=== PATIENT | male | born 1985 | race Caucasian/White ===

== ENCOUNTER 2022-02-24 21:10 | Emergency (ER) | payer OTHER, SELFPAY ==
[2022-02-24 21:12] VITALS: BP 171/116; PULSE 106; RESP 22; TEMP 36.6; O2SAT 99; BMI 28.7
--- NOTE | 2022-02-24 21:24 | HMH.EDGENADL ---
Discharge Plan Disposition Patient Disposition: [facility] Chief Complaint: Chest Pain Prescriptions Prescriptions: No Action No Known Home Medications Referrals Follow up/Referrals: Provider,Referral, [Primary Care Provider] - See instructions Clinical Impressions Clinical Impression: Acute alcoholic pancreatitis Discharge ED Provider: Risa Stewart General Adult HPI General Chief complaint: Chest Pain Stated complaint: chest pain Time Seen by Provider: 02/24/22 21:24 Mode of Arrival: Ambulatory Source of Information: Patient Limitations: Severe pain History of Present Illness HPI narrative: 36yo M w/pmhx of EtoH abuse w/cc of severe epigastric abdominal pain a/w nausea, vomiting, diarrhea. Patient provides limited h/o due to pain. Has attempted to drink Etoh to relieve sx without succes. Afebrile at home. Onset (ago): day(s) Radiation: abdomen Quality: stabbing and sharp Consistency: constant Relieving factors: none Exacerbating factors: none Associated symptoms: nausea/vomiting Treatments prior to arrival: none Related Data Home Medications Medication Instructions Recorded Confirmed No Known Home Medications 02/25/22 02/25/22 Allergies Allergy/AdvReac Type Severity Reaction Status Date / Time No Known Allergies Allergy Verified 02/24/22 21:32 [facility] Social History (Updated 02/25/22 @ 00:14 by Jessie Blair RN) Smoking Status: Current some day smoker alcohol intake: current counseling given: Yes counseling provided: provider counseling substance use type: other counseling given: Yes counseling provided: provider counseling current occupational status: employed Travel in the last 8 weeks: None ROS Obtained: Yes Systems reviewed as appropriate & no additional complaints except as documented Constitutional Constitutional: Denies body ache, Denies chills, Denies fatigue, Denies fever(s) and Denies headache(s) Eyes Eyes: Denies change in vision and Denies eye pain ENT Ears, Nose, Mouth, and Throat: Denies headache(s), Denies nasal congestion, Denies nasal discharge, Denies neck pain and Denies sore throat Cardiovascular Cardiovascular: Denies chest pain at rest, Denies chest pain with activity, Denies dyspnea on exertion, Denies leg edema and Denies palpitations Respiratory Respiratory: Denies shortness of breath, Denies cough, Denies dyspnea on exertion and Denies hemoptysis Gastrointestinal Gastrointestingal: Reports abdominal pain, diarrhea, nausea and vomiting; Denies hematemesis Genitourinary Male Genitourinary: Denies difficulty urinating, Denies hematuria, Denies oliguria and Denies urinary frequency Musculoskeletal Musculoskeletal: Denies back pain and Denies neck pain Integumentary/Breasts Skin/Breast: Denies new lesions and Denies rash Neurologic Neurologic: Denies confusion, Denies focal weakness, Denies headache(s) and Denies paresthesias Endocrine Endocrine: Denies fatigue and Denies palpitations Physical Exam General General appearance: alert Comment: Appears to be in moderate to severe pain Head Head exam: atraumatic, normocephalic and normal inspection Eye Eye exam: Present normal appearance; Absent conjunctival redness or conjunctival injection ENT ENT exam: Present normal exam, normal oropharynx, mucous membranes moist and normal external ear exam Neck Neck exam: Present normal inspection, full ROM and trachea midline Chest Chest inspection: Present normal inspection and symmetric chest wall rise Respiratory Respiratory exam: Present normal lung sounds bilaterally; Absent respiratory distress, wheezes or stridor Cardiovascular Cardiovascular exam: Present regular rate, normal rhythm, tachycardia and normal heart sounds Abdominal Exam Abdominal exam: Present soft, tenderness and guarding; Absent distention or rigidity Extremities Exam Extremities exam: Present normal inspection, full ROM and other (No acu
--- NOTE | 2022-02-24 21:36 | ECG_ITS ---
APPROVED REPORT Exam: Resting ECG HR:105 bpm ECG Measurements Heart Rate 105 AXES OK 140 P 69 QRSd 94 QRS 39 QT 347 T 53 QTc 408 Conclusion SINUS TACHYCARDIA ABNORMAL RHYTHM ECG UNCONFIRMED REPORT Electronically signed by : Dustin Cid MD 02/26/2022 18:01:39
--- NOTE | 2022-02-24 21:36 | XR_ITS ---
PROCEDURE INFORMATION: Exam: XR Chest Exam date and time: 02/24/2022 10:25 PM Age: 36 years old Clinical indication: Sternal or substernal pain; Additional info: Chest pain TECHNIQUE: Imaging protocol: Radiologic exam of the chest. Views: 1 view. COMPARISON: CT ABDOMEN PELVIS W CON 02/24/2022 10:03 PM FINDINGS: Lungs: Unremarkable. No consolidation. Pleural spaces: Unremarkable. No pleural effusion. No pneumothorax. Heart/Mediastinum: Unremarkable. No cardiomegaly. Bones/joints: Unremarkable. IMPRESSION: No acute findings.
--- NOTE | 2022-02-24 21:49 | CT_ITS ---
PROCEDURE INFORMATION: Exam: CT Abdomen And Pelvis With Contrast Exam date and time: 02/24/2022 10:03 PM Age: 36 years old Clinical indication: Abdominal pain; Generalized; Additional info: Abdominal pain, diffuse TECHNIQUE: Imaging protocol: Computed tomography of the abdomen and pelvis with contrast. Radiation optimization: All CT scans at this facility use at least one of these dose optimization techniques: automated exposure control; mA and/or kV adjustment per patient size (includes targeted exams where dose is matched to clinical indication); or iterative reconstruction. Contrast material: ISOVUE; Contrast volume: 75 ml; Contrast route: IV; COMPARISON: No relevant prior studies available. FINDINGS: Liver: There is a diffuse decrease in hepatic parenchymal density consistent with fatty infiltration. Gallbladder and bile ducts: Normal. No calcified stones. No ductal dilation. Pancreas: Ill-defined pancreatic borders. Relative slight decreased enhancement of the pancreatic tail. Considerable inflammatory changes surround the pancreas. Spleen: Normal. No splenomegaly. Adrenal glands: Normal. No mass. Kidneys and ureters: Normal. No hydronephrosis. Stomach and bowel: Unremarkable. No obstruction. No mucosal thickening. Appendix: Appendectomy. Intraperitoneal space: Free fluid within the abdomen and pelvis. Vasculature: Unremarkable. No abdominal aortic aneurysm. Lymph nodes: Unremarkable. No enlarged lymph nodes. Urinary bladder: Unremarkable as visualized. Reproductive: Unremarkable as visualized. Bones/joints: Unremarkable. No acute fracture. Soft tissues: Unremarkable. IMPRESSION: 1. Acute pancreatitis with considerable peripancreatic inflammatory change and pancreatic tail region edema. 2. Abdominal and pelvic free fluid. 3. Fatty liver.
[2022-02-24 21:57] LABS: Anion Gap 22.1 mEq/L (5-15); Blood Urea Nitrogen 20 mg/dl (9-20); Calcium 8.2 mg/dl (8.4-10.2); Carbon Dioxide 21 mmol/L (22.0-30.0); Chloride 100 mmol/L (98-107); Creatinine Clearance Estimated 148 mL/min (50-200); Estimated Glomerular Filt Rate 97 ml/min (>60); GFR (African American) 117 ML/MIN (>60); Glucose 115 mg/dl (74-100); Potassium 4.1 mmoL/L (3.5-5.1); Sodium 139 mmol/L (136-145)
[2022-02-24 22:00] VITALS: BP 160/109; PULSE 109; RESP 26; O2SAT 95
[2022-02-24 22:01] VITALS: PULSE 111; RESP 16; O2SAT 92
[2022-02-24 22:02] LABS: Basophils # 0.2 K/mm3 (0-0.2); Basophils % 0.9 % (0.1-2.0); Eosinophils % 0.1 % (0.1-12.0); Hematocrit 55.8 % (42.0-52.0); Lymphocytes # 2.1 K/mm3 (0.7-4.5); Lymphocytes % 10.1 % (10-50); Mean Corpuscular HGB Conc 34.7 g/dL (31.8-35.4); Mean Corpuscular Volume 95.3 fl (80-94); Mean Platelet Volume 8.5 fl (7.4-10.4); Monocytes # 0.9 K/mm3 (0.1-1.0); Monocytes % 4.4 % (1.7-9.3); Neutrophils # 17.7 K/mm3 (1.8-7.8); Neutrophils % 84.4 % (37.0-80.0); Platelet Count 350 K/mm3 (142-424); Red Blood Count 5.85 M/mm3 (4.60-6.20)
[2022-02-24 22:03] LABS: Hemoglobin 19.3 g/dL (14.1-18.0); MANUAL DIFFERENTIAL MANUAL DIFFERENTIAL (MANUAL DIFF)
[2022-02-24 22:10] LABS: Troponin I < 0.01 ng/ml (0.00-0.034)
[2022-02-24 22:12] LABS: Alanine Aminotransferase 39 U/L (12-78); Albumin Level 4.1 g/dl (3.5-5.0); Albumin/Globulin Ratio 1.6 (1.1-1.8); Alkaline Phosphatase 128 U/L (38-126); Anion Gap 20.1 mEq/L (5-15); Aspartate Amino Transferase 38 U/L (17-59); Bilirubin,Total 0.6 mg/dl (0.2-1.3); Blood Urea Nitrogen 21 mg/dl (9-20); Calcium 8.3 mg/dl (8.4-10.2); Carbon Dioxide 20 mmol/L (22.0-30.0); Chloride 101 mmol/L (98-107); Creatinine Clearance Estimated 134 mL/min (50-200); Estimated Glomerular Filt Rate 86 ml/min (>60); GFR (African American) 103 ML/MIN (>60); Globulin 2.6 g/dL (1.3-3.2); Glucose 116 mg/dl (74-100); Potassium 4.1 mmoL/L (3.5-5.1); Sodium 137 mmol/L (136-145); Total Protein,Serum 6.7 g/dl (6.3-8.2)
[2022-02-24 22:15] LABS: Lipase 8119 U/L (23-300)
[2022-02-24 22:30] VITALS: BP 162/118; PULSE 117; RESP 23; O2SAT 93
[2022-02-24 22:33] LABS: Lymphocytes % 7 % (10-50); Monocytes % 2 % (2-9); Neutrophils % 91 % (42-76); Platelet Estimate Normal; Tear Drop Cells 1+; Total Cells Counted 100
[2022-02-24 23:00] VITALS: BP 163/108; PULSE 105; RESP 31; O2SAT 94
[2022-02-24 23:21] LABS: Microscopic, Urine URINE MICROSCOPIC (MICROSCOPIC)
[2022-02-24 23:23] LABS: Appearance,Urine CLEAR (Clear); Bilirubin,Urine Negative (Negative); Blood, Urine 1+ (Negative); Color,Urine YELLOW (Yellow); Glucose,Urine (UA) Negative (Negative); Ketones,Urine 1+ (Negative); Leukocyte Esterase,Urine Negative (Negative); Nitrate,Urine Negative (Negative); Protein,Urine 1+ (Negative); Specific Gravity, Urine >= 1.030 (1.005-1.030); Urobilinogen,Urine 0.2 EU/dl (0.2)
[2022-02-24 23:28] LABS: Amorphous Sediment,Urine Trace /lpf
[2022-02-24 23:30] VITALS: BP 172/120; PULSE 113; RESP 20; O2SAT 93
[2022-02-24 23:37] LABS: Lactic Acid 4.3 mmol/L (0.7-2.1)
[2022-02-25] VITALS: BP 148/114; PULSE 118; RESP 18; O2SAT 96
--- NOTE | 2022-02-25 00:08 | PC.NURSE ---
Called [facility] to see about getting pt transferred. AOD advised he would call back when things settles down
[2022-02-25 00:30] VITALS: BP 163/118; PULSE 124; RESP 17; O2SAT 91
--- NOTE | 2022-02-25 00:33 | PC.NURSE ---
s/w AOD @ [facility] for possible transfer. He states pt is not in their system but is a disability discharged . Pt reports he was last seen at [facility]. AOD will call back after receiving records from [place].
[2022-02-25 01:00] VITALS: BP 177/126; PULSE 129; RESP 19; O2SAT 94
[2022-02-25 01:16] LABS: Coronavirus 19, PCR Not Detected (NotDetected); Influenza A, PCR Not Detected (NotDetected); Influenza B, PCR Not Detected (NotDetected)
[2022-02-25 01:30] VITALS: BP 148/120; PULSE 123; RESP 18; O2SAT 97
[2022-02-25 01:56] LABS: Reflex Lactic Add Lactic Reflex
[2022-02-25 02:10] LABS: Ethyl Alcohol 86 mg/dl (0-10)
[2022-02-25 02:13] LABS: Lactic Acid Follow Up (RFLX 1) 4.3 mmol/L (0.7-2.1)
--- NOTE | 2022-02-25 02:14 | PC.NURSE ---
notified of critical lactic
[2022-02-25 02:20] LABS: Amphetamine/Metha Screen,Urine Negative ng/ml (<1000)
[2022-02-25 02:21] LABS: Barbiturates Screen,Urine Negative ng/ml (<200)
[2022-02-25 02:22] LABS: Benzodiazepines Screen,Urine Negative ng/ml (<200); Cannabinoid Screen,Urine Positive ng/ml (<50)
[2022-02-25 02:23] LABS: Cocaine Screen,Urine Negative ng/ml (<300); Methadone Screen,Urine Negative ng/ml (<300)
[2022-02-25 02:24] LABS: Opiate Screen,Urine Positive ng/ml (<300)
[2022-02-25 02:25] LABS: Phencyclidine Screen,Urine Negative ng/ml (<25)
--- NOTE | 2022-02-25 02:49 | PC.NURSE ---
s/w [facility] AOD regarding awaiting results. since pt is covid -, he will reach out to Hospitalist and call us back.
--- NOTE | 2022-02-25 02:50 | PC.NURSE ---
s/w Dr. Alvarado, [place] Hospitalist regarding pt transfer
--- NOTE | 2022-02-25 03:13 | PC.NURSE ---
Dr. Alysa Alvarado at [facility] agrees to accept pt. [facility] will call for with assignment.
--- NOTE | 2022-02-25 03:16 | PC.NURSE ---
Dr. Stewart aware of BP & HR, no new orders
--- NOTE | 2022-02-25 03:41 | PC.NURSE ---
updated PRN pain medication to Dilaudid from Morphine. also agrees for pt to have ice chips
[2022-02-25 03:43] LABS: Troponin I < 0.01 ng/ml (0.00-0.034)
[2022-02-25 03:56] LABS: Reflex Lactic (2 hrs) Add Lactic Reflex
[2022-02-25 04:07] VITALS: BP 148/105; PULSE 124; PULSE 144; RESP 18; TEMP 36.6; O2SAT 98
== END 2022-02-25 05:06 ==
PROVIDERS: Emergency Provider Emergency Medicine
DX: R07.9 Chest pain, unspecified (principal); K85.20 Alcohol induced acute pancreatitis without necrosis or infection; Z20.822 Contact with and (suspected) exposure to COVID-19; F17.210 Nicotine dependence, cigarettes, uncomplicated; Z71.6 Tobacco abuse counseling
CPT/HCPCS: 71045; 74177; 80048; 80053; 80305; 81001; 83605; 83690; 84484; 85007; 85025; 93005; 96361; 96374; 96375; 96376; 99285; C9803; J2405; Q9967; U0003; U0005

== ENCOUNTER 2024-05-06 17:32 | Emergency (ER) | payer OTHER, SELFPAY ==
[2024-05-06] VITALS (9 sets, daily range): BP systolic 101–164; BP diastolic 66–107; PULSE 93–120; RESP 20; TEMP 36.9; O2SAT 93–99; BMI 35.9
--- NOTE | 2024-05-06 17:42 | HMH.EDGENADL ---
Discharge Plan Disposition Patient Disposition: Home, Self-Care Prescriptions Prescriptions: No Action No Known Home Medications Referrals Follow up/Referrals: Provider,Referral, MD [Primary Care Provider] - See instructions Activity Restrictions/Add. Instructions Additional Instructions/Restrictions: Follow-up with primary care doctor. Please return the emerged part with any new, concerning, worsening symptoms. Clinical Impressions Clinical Impression: Alcohol intoxication Qualifiers: Complication of substance-induced condition: with delirium Qualified Code(s): F10.921 - Alcohol use, unspecified with intoxication delirium Print Language Print Language: Bengali Discharge ED Provider: Elvis Walter General Adult HPI General Chief complaint: Medical Clearance Stated complaint: Medical Clearance Time Seen by Provider: 05/06/24 17:36 Mode of Arrival: EMS Source of Information: EMS Limitations: Intoxication History of Present Illness HPI narrative: This is a 39-year-old male with a past medical history of alcohol abuse who presents via EMS with alcohol intoxication. States that he was found on the floor board of a vehicle surrounded and vomit. Appear to be intoxicated. Was also agitated and aggressive. No medications given prior to arrival. States the patient had been clean for several months however had a few bad days according to his significant other and binge drank. Related Data Home Medications ?Medication ?Instructions ?Recorded ?Confirmed No Known Home Medications 02/25/22 02/25/22 Allergies Allergy/AdvReac Type Severity Reaction Status Date / Time No Known Allergies Allergy Verified 02/24/22 21:32 [facility] Disclaimer: The information contained in this section may have been updated after the patient was seen, as this information can be updated by other users. Social History (Updated 02/25/22 @ 00:14 by Jessie Blair RN) Smoking Status: Current every day smoker alcohol intake: current counseling given: Yes counseling provided: provider counseling substance use type: other counseling given: Yes counseling provided: provider counseling current occupational status: employed Travel in the last 8 weeks: None Have you lived/traveled outside [place] in past 30 days?: No Contact w/someone who lives/traveled outside US past 30 days?: No Exposure to someone with infectious disease in past 14 days?: No Do you have a fever (greater than 100.4 F or 38 C)?: No Have you tested positive for COVID-19: No Exposed to someone with COVID-19 in past 14 days?: No Do you have a sore throat?: No Do you have a cough?: No Do you have any weakness?: No Do you have any diarrhea?: No Are you experiencing any unusual bleeding?: No Do you have any muscle aches/pain?: No Do you have any abdominal pain?: No Are you experiencing loss of taste or smell?: No ROS Obtained: Yes All systems reviewed & no additional complaints except as documented Physical Exam General General appearance: alert and appears intoxicated Eye Eye exam: Present normal appearance, PERRL and EOMI Respiratory Respiratory exam: Absent respiratory distress Cardiovascular Cardiovascular exam: Present regular rate Abdominal Exam Abdominal exam: Present distention Extremities Exam Extremities exam: Present normal inspection Neurological Exam Neurological exam: Present alert and other (GCS 14) Skin Skin exam: Present warm and dry Medical Decision Making Medical Records Medical records reviewed: Yes I reviewed the patient's medical records. Screening: Per USPSTF and CDC recommendations, given the prevalence of disease in our region, it is our hospital?s policy to screen for HIV and viral Hepatitis for all patients aged 18 and over and those with ongoing risk factors. Zeke Inquiry Pt receiving controlled substance: No Vital Signs: 05/06/24 17:33 05/06/24 18:02 05/06/24 18:31 Temperature 98.5 F Temperature Source Oral Pulse Rate Pulse Rate [Left Radial] 120 H Respiratory Rate 20 Blood Pressure 144/88 H 154/106 H Blood Pressure [Right Arm] 164/107 H Blood Pressure Mean 119 120 Blood Pressure Mean [Right Arm] 126 02 Sat by Pulse Oximetry 99 Oxygen Delivery Method Room Air 05/06/24 18:45 05/06/24 19:01 05/06/24 19:30 Temperature Temperature Source Pulse Rate 115 H 101 H 96 H Pulse Rate [Left Radial] Respiratory Rate Blood Pressure 116/76 111/66 112/68 Blood Pressure [Right Arm] Blood Pressure Mean 81 77 Blood Pressure Mean [Right Arm] 02 Sat by Pulse Oximetry 94 L 93 L 93 L Oxygen Delivery Method 05/06/24 20:01 05/06/24 20:31 05/06/24 21:01 Temperature Temperature Source Pulse Rate 107 H 93 H 93 H Pulse Rate [Left Radial] Respiratory Rate Blood Pressure 138/97 H 101/68 L 125/90 Blood Pressure [Right Arm] Blood Pressure Mean 110 79 98 Blood Pressure Mean [Right Arm] 02 Sat by Pulse Oximetry 94 L 95 96 Oxygen Delivery Method Lab Data Lab Results 05/06/24 17:41: WBC 15.2 H, RBC 5.63, Hgb 17.2, Hct 49.9, MCV 88.6, MCH 30.6, MCHC 34.5, RDW 11.7, Plt Count 209, MPV 11.4 H, Neut % (Auto) 77.3, Lymph % (Auto) 18.2, [place] % (Auto) 2.7, Eos % (Auto) 0.1, Baso % (Auto) 0.6, Neut # (Auto) 11.8 H, Lymph # (Auto) 2.8, [place] # (Auto) 0.4, Eos # (Auto) 0.0, Baso # (Auto) 0.1, Total Counted 100, Neutrophils % (Manual) 76, Lymphocytes % (Manual) 22, Monocytes % (Manual) 1 L, Basophils % (Manual) 1.0, Platelet Estimate Normal, Stomatocytes 1+, Sodium 140, Potassium 4.6, Chloride 104, Carbon Dioxide 18 L, Anion Gap 22.6 H, BUN 24 H, Creatinine 1.00, Estimated Creat Clear 162, Estimated GFR 84, Est GFR ( Amer) 102, Glucose 354 H, Calcium 8.4, Magnesium 2.1, Total Bilirubin 0.7, AST 42, ALT 36, Alkaline Phosphatase 93, Total Protein 7.3, Albumin 4.9, Globulin 2.4, Albumin/Globulin Ratio 2.0 H, Plasma/Serum Alcohol 331 H, HIV Ag/Ab Combo Qual Negative 05/06/24 19:56: Urine Color Yellow, Urine Appearance Clear, Urine pH 5.5, Ur Specific [place] 1.010, Urine Protein Negative, Urine Glucose (UA) 3+, Urine Ketones Trace, Urine Blood Trace-i, Urine Nitrate Negative, Urine Bilirubin Negative, Urine Urobilinogen 0.2, Ur Leukocyte Esterase Negative, Urine RBC 10-20, Urine WBC 10-20, Ur Squamous Epith Cells 10-20, Urine Bacteria 1+, Urine Opiates Screen Negative, Urine Methadone Screen Negative, Ur Barbituates Screen Negative, Ur Phencyclidine Scrn Negative, Ur Amphetamines Screen Negative, U Benzodiazepines Scrn Positive H, Urine Cocaine Screen Negative, U Marijuana (THC) Screen Negative 05/06/24 21:10: Plasma/Serum Alcohol 256 H 05/06/24 17:41 05/06/24 17:41 Orders (Tests/Meds): ED MEDICATIONS Discontinued Medications Generic Name Dose Route Start Last Admin Trade Name Scar PRN Reason Stop Dose Admin Droperidol 2.5 mg 05/06/24 18:38 05/06/24 18:39 Droperidol 5mg/2ml Vial IV 05/06/24 18:39 Not Given ONCE ONE Droperidol 5 mg 05/06/24 18:38 05/06/24 18:40 Droperidol 5mg/2ml Vial IV 05/06/24 18:39 5 mg ONCE ONE Administration Lactated Ringer's 1,000 mls @ 999 mls/hr 05/06/24 17:42 05/06/24 18:01 Lactated Ringer's 1000 Ml Bag IV 05/06/24 18:42 999 mls/hr .Q1H1M ONE Administration Midazolam HCl 2 mg 05/06/24 18:18 05/06/24 18:35 Midazolam 2mg/2ml Vial IV 05/06/24 18:19 Not Given ONCE ONE Midazolam HCl 2 mg 05/06/24 18:28 05/06/24 18:36 Midazolam 2mg/2ml Vial IV 05/06/24 18:29 2 mg ONCE ONE Administration Midazolam HCl 2 mg 05/06/24 18:34 05/06/24 18:36 Midazolam 5mg/Ml 1ml Vial IV 05/06/24 18:35 2 mg ONCE ONE Administration Ondansetron HCl 4 mg 05/06/24 18:37 05/06/24 18:38 Ondansetron 4mg/2ml Vial IV 05/06/24 18:38 4 mg ONCE ONE Administration ORDERS Category Date Time Status Consult Condenser Cleaner [CONS] Routine Cons 05/06/24 18:04 Active Blood alcohol [Ethyl Alcohol] Stat Lab 05/06/24 17:41 Completed Blood alcohol [Ethyl Alcohol] Stat Lab 05/06/24 21:10 Completed CBC w/Auto Diff [Complete Blood Count Auto Diff] Stat Lab 05/06/24 17:41 Completed CMP [Comprehensive Metabolic Panel] Stat Lab 05/06/24 17:41 Completed HIV Combo Stat Lab 05/06/24 17:41 Completed Hep C Ab with Reflex to RNA Stat Lab 05/06/24 17:41 Received Magnesium Stat Lab 05/06/24 17:41 Completed UDS [Drug Screen,Urine] Stat Lab 05/06/24 19:56 Completed Urinalysis and Microscopic Stat Lab 05/06/24 19:56 Completed Urine Culture Stat Micro 05/06/24 19:56 Received ECG Data Tracing #1: I reviewed this ECG and interpreted as documented below: Sinus tachycardia at a rate of 101, normal axis, QTc 408, no STEMI Medical Decision Narrative: In summary, this 39-year-old male with a history of alcohol abuse presents to the emergency department today with alcohol intoxication. On initial evaluation patient is clearly intoxicated, agitated however not requiring any chemical restraint at this moment, hemodynamically stable, nontoxic-appearing. Differential diagnosis includes but is not limited to alcohol intoxication, electrolyte abnormality, head injury, aspiration. Based on these concerns, I ordered CT head, chest x-ray, CBC, CMP, alcohol level, magnesium, EKG. ECG personally interpreted as noted above. Patient received 1 L of lactated Ringer's for treatment. Labs personally reviewed demonstrate anion gap of 22.6, glucose of 354, alcohol level of 331, white blood cell count of 15. Further history was obtained from the catapult and arresting gear officer who was present on scene. States the patient had no falls and was with his girlfriend the whole time. No head injury. Also states that patient was not covered in vomit but it was on the seat. Low clinical concern for intracranial injury or aspiration at this time. Chest x-ray and CT head discontinued at this time. Patient continued to remain agitated and was ultimately released from the custody of the catapult and arresting gear officer. Given patient's persistent agitation and concern for his own safety and the safety of others, chemical restraint was pursued with 4 mg of Versed and ultimately 5 mg of droperidol. Discussed possibility of transfer to [facility] for evaluation of alcohol use and for psychiatric evaluation, however after metabolization of alcohol and sedatives the patient denied any suicidal ideation or homicidal ideation and stated that he had been sober for over a year with a relapse today. Was not interested in inpatient management. Patient was ultimately discharged with a ride home. Critical Care Critical Care Time Critical Care Time: No
--- NOTE | 2024-05-06 17:48 | ECG_ITS ---
APPROVED REPORT Exam: Resting ECG HR:111 bpm ECG Measurements Heart Rate 111 AXES NC 149 P 57 QRSd 102 QRS 15 QT 342 T 96 QTc 408 Conclusion SINUS TACHYCARDIA MINIMAL VOLTAGE CRITERIA FOR LVH, CONSIDER NORMAL VARIANT [MEETS CRITERIA IN ONE OF: R(aVL), S(V1), R(V5), R(V5/V6)+S(V1)] NONSPECIFIC T-WAVE ABNORMALITY ABNORMAL ECG UNCONFIRMED REPORT Electronically signed by : Elvis Walter, 05/06/2024 21:28:57
[2024-05-06] MEDS: LACTATED RINGERS 1000ML 1,000 ML 999 ML IV (18:01)
[2024-05-06 18:27] LABS: Alanine Aminotransferase 36 U/L (12-78); Albumin Level 4.9 g/dl (3.5-5.0); Alkaline Phosphatase 93 U/L (38-126); Anion Gap 22.6 mEq/L (5-15); Aspartate Amino Transferase 42 U/L (17-59); Bilirubin,Total 0.7 mg/dl (0.2-1.3); Blood Urea Nitrogen 24 mg/dl (9-20); Calcium 8.4 mg/dl (8.4-10.2); Carbon Dioxide 18 mmol/L (22.0-30.0); Chloride 104 mmol/L (98-107); Creatinine Clearance Estimated 162 mL/min (50-200); Estimated Glomerular Filt Rate 84 ml/min (>60); GFR (African American) 102 ML/MIN (>60); Globulin 2.4 g/dL (1.3-3.2); Glucose 354 mg/dl (74-100); Magnesium 2.1 mg/dl (1.6-2.3); Potassium 4.6 mmoL/L (3.5-5.1); Sodium 140 mmol/L (136-145); Total Protein,Serum 7.3 g/dl (6.3-8.2)
[2024-05-06 18:36] LABS: Ethyl Alcohol 331 mg/dl (0-10)
[2024-05-06] MEDS: MIDAZOLAM 5MG/ML 1ML VIAL 2 MG IV (18:36)
[2024-05-06] MEDS: MIDAZOLAM 2MG/2ML VIAL 2 MG IV (18:36)
[2024-05-06] MEDS: ONDANSETRON 4MG/2ML VIAL 4 MG IV (18:38)
[2024-05-06] MEDS: droPERidol 5MG/2ML VIAL 5 MG IV (18:40)
[2024-05-06 19:03] LABS: Hematocrit 49.9 % (42.0-52.0); Hemoglobin 17.2 g/dL (14.1-18.0); Lymphocytes % 18.2 % (10-50); Mean Corpuscular HGB Conc 34.5 g/dL (31.8-35.4); Mean Corpuscular Hemoglobin 30.6 pg (27.0-31.2); Mean Corpuscular Volume 88.6 fl (80-94); Mean Platelet Volume 11.4 fl (7.4-10.4); Monocytes % 2.7 % (1.7-9.3); Neutrophils % 77.3 % (37.0-80.0); Platelet Count 209 K/mm3 (142-424); Red Blood Count 5.63 M/mm3 (4.60-6.20); Red Cell Distribution Width 11.7 % (11.5-17.5); White Blood Count 15.2 K/mm3 (4.8-10.8)
[2024-05-06 19:04] LABS: Basophils # 0.1 K/mm3 (0-0.2); Basophils % 0.6 % (0.1-2.0); Eosinophils % 0.1 % (0.1-12.0); Lymphocytes # 2.8 K/mm3 (0.7-4.5); MANUAL DIFFERENTIAL MANUAL DIFFERENTIAL (MANUAL DIFF); Monocytes # 0.4 K/mm3 (0.1-1.0); Neutrophils # 11.8 K/mm3 (1.8-7.8)
[2024-05-06 20:00] LABS: Microscopic, Urine URINE MICROSCOPIC (MICROSCOPIC)
[2024-05-06 20:01] LABS: Appearance,Urine CLEAR (Clear); Bilirubin,Urine Negative (Negative); Blood, Urine TRACE-I (Negative); Color,Urine YELLOW (Yellow); Glucose,Urine (UA) 3+ (Negative); Ketones,Urine TRACE (Negative); Leukocyte Esterase,Urine Negative (Negative); Nitrate,Urine Negative (Negative); PH,Urine 5.5 (5.0-8.5); Protein,Urine Negative (Negative); Urobilinogen,Urine 0.2 EU/dl (0.2)
--- NOTE | 2024-05-06 20:02 | PC.NURSE ---
records faxed to [facility] pending, will fax results once received
--- NOTE | 2024-05-06 20:47 | PC.NURSE ---
Called [facility] to see our progress on getting Mr. Lynn transferred. facility went ahead and attempted to speak with Mr. Lynn at this time.
[2024-05-06 20:56] LABS: Bacteria,Urine 1+ /lpf
--- NOTE | 2024-05-06 21:08 | PC.NURSE ---
Spoke with Kat at [facility] that requested another alcohol level to be drawn and she would speak with the physician and will call back.
--- NOTE | 2024-05-06 21:12 | PC.NURSE ---
blood collected and sent to lab
[2024-05-06 21:13] LABS: Amphetamine/Metha Screen,Urine Negative ng/ml (<1000)
[2024-05-06 21:14] LABS: Barbiturates Screen,Urine Negative ng/ml (<200)
[2024-05-06 21:15] LABS: Benzodiazepines Screen,Urine Positive ng/ml (<200); Cannabinoid Screen,Urine Negative ng/ml (<50)
[2024-05-06 21:16] LABS: Cocaine Screen,Urine Negative ng/ml (<300)
[2024-05-06 21:17] LABS: Methadone Screen,Urine Negative ng/ml (<300); Opiate Screen,Urine Negative ng/ml (<300)
[2024-05-06 21:18] LABS: Phencyclidine Screen,Urine Negative ng/ml (<25)
[2024-05-06 21:25] LABS: Lymphocytes % 22 % (10-50); Monocytes % 1 % (2-9); Neutrophils % 76 % (42-76); Total Cells Counted 100
[2024-05-06 21:26] LABS: Platelet Estimate Normal; Stomatocytes 1+
--- NOTE | 2024-05-06 21:26 | PEERSUPPORT ---
Peer Support Note Patient Information Patient Information: DOS: 05/06/2024 Reason: AUD/Ps consult (Medical Clearance) ? Patient is intoxicated/ETOH. He is very reactive and emotionally distressed when seeing the police officer booking. When the officer is out of the room he does calm down. ? Ps disclosed this to the officer with concerns of mental health. ? Officer stated his boss informed him that he is a and mental health is an issue. ? Officer has been ordered to release him and provide citation. ? Ps disclosed this to for concern of the officer removing the handcuffs and patient being a danger to self and others. ? agrees to medicate him for relief. ? 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 ? Nurse Yuliya Patel informs to consider 72 hour hold. Ps will follow with patient on 05/07/2024, to offer recovery support.
[2024-05-06 21:53] LABS: Ethyl Alcohol 256 mg/dl (0-10)
[2024-05-06 22:10] LABS: HIV Combo NEGATIVE (Negative)
--- NOTE | 2024-05-06 23:10 | PC.NURSE ---
Called Frida, pt's significant other to update on POC she is on her way to pick patient up but will take 1 hour travel time.
[2024-05-07 00:58] VITALS: BP 126/92; PULSE 93; RESP 18; TEMP 36.4; O2SAT 98
[2024-05-08 09:10] LABS: HCV Ab Non Reactive (Non Reactive)
== END 2024-05-07 01:14 | disposition home or self-care (01) ==
PROVIDERS: Emergency Provider Student in an Organized Health Care Education/Training Program
DX: F10.929 Alcohol use, unspecified with intoxication, unspecified (principal); Y90.8 Blood alcohol level of 240 mg/100 ml or more
CPT/HCPCS: 51702; 80053; 80307; 80320; 81001; 83735; 85007; 85025; 85027; 86803; 87086; 87389; 93005; 96361; 96374; 96375; 99284; G0480; J1790; J2250; J2405; J7120